=== PATIENT | female | born 1935 | race Caucasian/White ===

== ENCOUNTER 2016-10-07 06:20 | Day surgery (SDC) | payer MEDICARE, BC ==
[2016-10-05 13:13] VITALS: BMI 32.1
[~2016-10-07 06:20] MED LIST: LACTATED RINGERS 1,000 ML IV SCH; LIDOCAINE 1% 20 ML VIAL (10MG/ML) FOR IV START INTRADERMA PRN
[2016-10-07 06:52] VITALS: TEMP 97.3
[2016-10-07] MEDS ORDERED: LACTATED RINGERS 1,000 ML IV ONE (06:52)
[2016-10-07 06:57] LABS: Glucose,Whole Blood 171 mg/dL (75-99)
[2016-10-07] MEDS ORDERED: PROPOFOL 10 MG/ML 20 ML VIAL IV ONE (07:06)
--- NOTE | 2016-10-07 07:27 | P.PCN ---
Date of Procedure: 10/07/16 Preoperative Diagnosis: Postoperative Diagnosis: Procedure(s) Performed: BRIEF HISTORY: Patient is a 80-year-old pleasant white female, scheduled for an elective colonoscopy as a part of screening for colorectal neoplasia. PROCEDURE PERFORMED: Colonoscopy with biopsy. PREOPERATIVE DIAGNOSIS: Screening for colon cancer. IV sedation per Anesthesia. PROCEDURE: After informed consent was obtained, the patient, was brought into the endoscopy unit. IV sedation was administered by Anesthesia under continuous monitoring. Digital rectal examination was normal. Initially the Olympus CF- 160 flexible video colonoscope was then inserted in the rectum, gradually advanced into the cecum without any difficulty. Careful examination was performed as the scope was gradually being withdrawn. Ileocecal valve and the appendiceal orifice were visualized and appeared normal. Prep was excellent. Mucosa of the cecum, ascending colon, transverse colon, descending colon, sigmoid colon, and rectum appeared normal. Retroflexion was performed in the rectum and small internal hemorrhoids were seen. The patient tolerated the procedure well. IMPRESSION: Superficial erosion/ulceration of the ileocecal valve status post biopsy Scattered sigmoid diverticulosis Small internal hemorrhoids. RECOMMENDATIONS: Findings of this examination were discussed with the patient as well as his family. She was advised to follow with the biopsy results. Implants: Indications for Procedure: Operative Findings: Description of Procedure:
[2016-10-07 07:30] VITALS: RESP 16
[2016-10-07 07:43] VITALS: BP 144/80; PULSE 82
== END 2016-10-07 08:21 | disposition home or self-care (01) ==
LOC: ORWHC2ENDO 06:20
PROVIDERS: ATTEND Internal Medicine Gastroenterology
DX: Z12.11 Encounter for screening for malignant neoplasm of colon (principal); K52.9 Noninfective gastroenteritis and colitis, unspecified; K57.30 Diverticulosis of large intestine without perforation or abscess without bleeding; K64.8 Other hemorrhoids; I10 Essential (primary) hypertension; E11.9 Type 2 diabetes mellitus without complications; Z79.4 Long term (current) use of insulin; Z79.82 Long term (current) use of aspirin; Z79.84 Long term (current) use of oral hypoglycemic drugs; Z79.899 Other long term (current) drug therapy
CPT/HCPCS: 45380; 88305; J2704

== ENCOUNTER 2019-05-14 16:08 | Emergency (ER) | payer MEDICARE, BC ==
[2019-05-14 16:13] VITALS: RESP 20; TEMP 98.5
[2019-05-14] MEDS ORDERED: ACETAMINOPHEN TAB 325 MG TAB PO STA (16:21)
--- NOTE | 2019-05-14 16:26 | ED ---
Fall HPI - General Chief Complaint: Fall Stated Complaint: Fall, leg and ankle pain Time Seen by Provider: 05/14/19 16:15 Source: patient Mode of arrival: wheelchair - History of Present Illness Initial Comments: Patient is an 83-year-old female presenting to emergency Department with complaints of left leg pain after slipping at her house today approximately 2 hours prior to arrival. Patient states she went to step down onto her deck when she stepped on ice and her feet went forward. Patient states she landed on her butt. Patient is complaining of pain in her left knee, lower leg and left ankle. She did not hit her head, no LOC, no hip or no belly pain. She denies any surgeries to her left lower extremity. She has no other complaints at this time. Upon arrival to the ER, BP is 201/98, rest of vitals are normal. - Related Data Home Medications Medication Instructions Recorded Confirmed Aspirin [Adult Low Dose Aspirin EC] 81 mg PO DAILY 10/05/16 10/07/16 Insulin Glargine,Hum.rec.anlog 35 unit SQ HS 10/05/16 10/07/16 [Lantus Solostar] Losartan Potassium 100 mg PO DAILY 10/05/16 10/07/16 Multivit-Min/FA/Lycopen/Lutein 1 each PO DAILY 10/05/16 10/07/16 [Centrum Silver Tablet] glipiZIDE [Glipizide] 10 mg PO BID 10/05/16 10/07/16 sitaGLIPtin PHOS/metFORMIN HCL 1 each PO BID 10/05/16 10/07/16 [Janumet 50-500 mg Tablet] Allergies Allergy/AdvReac Type Severity Reaction Status Date / Time No Known Allergies Allergy Verified 05/14/19 16:13 Review of Systems ROS Statement: Those systems with pertinent positive or pertinent negative responses have been documented in the HPI. ROS Other: All systems not noted in ROS Statement are negative. Past Medical History Past Medical History: Diabetes Mellitus, Hypertension Additional Past Medical History / Comment(s): VARICOSE VEINS History of Any Multi-Drug Resistant Organisms: None Reported Past Surgical History: Tubal Ligation Past Anesthesia/Blood Transfusion Reactions: No Reported Reaction Past Psychological History: No Psychological Hx Reported Smoking Status: Never smoker Past Alcohol Use History: None Reported Past Drug Use History: None Reported - Past Family History Mother Family Medical History: No Reported History General Exam - General Exam Comments Initial Comments: GENERAL: Well-appearing, well-nourished and in no acute distress. HEAD: Atraumatic, normocephalic. EYES: Pupils equal round and reactive to light, extraocular movements intact, sclera anicteric, conjunctiva are normal. ENT: TMs normal, nares patent, oropharynx clear without exudates. Moist mucous membranes. NECK: Normal range of motion, supple without lymphadenopathy or JVD. LUNGS: Breath sounds clear to auscultation bilaterally and equal. No wheezes rales or rhonchi. HEART: Regular rate and rhythm without murmurs, rubs or gallops. ABDOMEN: Soft, nontender, normoactive bowel sounds. No guarding, no rebound. No masses appreciated. EXTREMITIES: No pain in the left hip, full hip range of motion. Mild pain in the left anterior knee and left tib-fib. There is no swelling or deformity seen in the left knee or tib-fib. There is moderate swelling of the lateral aspect of the left ankle. There is pain with palpation lateral malleolus. Patient is neurovascular intact. She is unable to bear weight secondary to pain. NEUROLOGICAL: Cranial nerves II through XII grossly intact. Normal speech. PSYCH: Normal mood, normal affect. SKIN: Warm, Dry, normal turgor, no rashes or lesions noted. Limitations: no limitations Course Vital Signs 05/14/19 05/14/19 05/14/19 16:10 17:13 17:38 Temperature 98.5 F Pulse Rate 109 H 99 Respiratory 20 20 20 Rate Blood Pressure 201/98 141/95 O2 Sat by Pulse 97 95 Oximetry Medical Decision Making - Medical Decision Making Patient is an 83-year-old female presenting with left knee and left ankle pain after slipping on ice today at her house. X-rays of the left knee, tib-fib, left ankle reveal no acute fractures/dislocations. I discussed these findings with the patient. An Jakob wrap was applied to the left ankle for swelling. Patient was also given an Aircast to use once the swelling subsides. Patient is stable for discharge at this time. If pain continues with some improvement after one week, patient will follow-up with PCP for reevaluation. She is in agreement with this plan of care. Vital signs upon discharge are normal. Return parameters were discussed with the patient she verbalized understanding. Disposition Clinical Impression: Fall, Left anterior knee pain, Left ankle sprain Disposition: HOME SELF-CARE Condition: Stable Instructions (If sedation given, give patient instructions): Ankle Sprain (ED) Additional Instructions: Please return to the Emergency Department if symptoms worsen or any other concerns. Continue with compression wrap for swelling. May take Tylenol for pain relief. Use ice and elevation as well. If symptoms persist after one week, follow-up with PCP for reevaluation. Use Aircast for support when walking. Is patient prescribed a controlled substance at d/c from ED?: No Referrals: Nolberto Conway DO [Primary Care Provider] - 1-2 days
--- NOTE | 2019-05-14 17:14 | XR ---
EXAMINATION TYPE: XR ankle complete LT DATE OF EXAM: 05/14/2019 COMPARISON: NONE HISTORY: Pain. Fall. TECHNIQUE: 3 views FINDINGS: There is significant lateral soft tissue swelling. Ankle mortise is anatomic. I see no frac ture. There is plantar calcaneal spurring. IMPRESSION: Soft tissue swelling. No fracture seen.
--- NOTE | 2019-05-14 17:15 | XR ---
EXAMINATION TYPE: XR knee complete LT DATE OF EXAM: 05/14/2019 COMPARISON: NONE HISTORY: Pain TECHNIQUE: 3 views FINDINGS: I see no fracture nor dislocation. Knee joint spaces are fairly normal. There is vascular c alcification. IMPRESSION: No acute abnormality of the left knee. No fracture seen.
--- NOTE | 2019-05-14 17:16 | XR ---
EXAMINATION TYPE: XR tibia fibula LT DATE OF EXAM: 05/14/2019 COMPARISON: NONE HISTORY: Pain TECHNIQUE: 2 views FINDINGS: I see no fracture nor dislocation. Ankle joint and knee joint appear intact. There is soft tissue swelling. IMPRESSION: Soft tissue swelling. No fracture seen.
[2019-05-14 17:26] VITALS: BP 141/95; PULSE 99
== END 2019-05-14 17:41 | disposition home or self-care (01) ==
LOC: EC 16:08
DX: S93.402A Sprain of unspecified ligament of left ankle, initial encounter (principal); M25.562 Pain in left knee; E11.9 Type 2 diabetes mellitus without complications; I10 Essential (primary) hypertension; Z79.4 Long term (current) use of insulin; Z79.82 Long term (current) use of aspirin; Z79.899 Other long term (current) drug therapy; Z86.79 Personal history of other diseases of the circulatory system; W00.1XXA Fall from stairs and steps due to ice and snow, initial encounter; Y93.89 Activity, other specified; Y92.009 Unspecified place in unspecified non-institutional (private) residence as the place of occurrence of the external cause
CPT/HCPCS: 99283

== ENCOUNTER → 2023-12-07 | Outpatient (CLI) | payer MEDICARE | END | disposition home or self-care (01) | LOC: LABPRL 10:30 | PROVIDERS: ATTEND Family Medicine | DX: I10 Essential (primary) hypertension | CPT/HCPCS: 80053; 80061; 83036; 84439; 84443; 85025 ==